=== PATIENT | female | born 1975 | race Caucasian/White ===

== ENCOUNTER 2018-11-16 22:09 | Inpatient (IN) ==
[2018-11-17] MEDS ORDERED: TORADOL IV ONE ×2 (02:21→03:46)
[2018-11-17] MEDS ORDERED: LACTULOSE PO ONE (02:22)
--- NOTE | 2018-11-17 02:22 | PROVIDER DOCUMENTATION ---
HPI-Abdominal Pain/GI Problem - General Chief Complaint: Constipation Stated Complaint: ABD PAIN Time Seen by Provider: 11/17/18 01:44 Source: patient, family Allergies/Adverse Reactions: Patient Allergies Allergy/AdvReac Type Severity Reaction Status Date / Time clindamycin Allergy ANAPHYLAXIS Verified 08/28/17 10:48 Home Medications: Home Medication List Medication Instructions Recorded Confirmed Last Taken Type Insulin Detemir [Levemir] 50 units SQ BID 10/22/15 11/17/18 03/24/17 20:00 History - History of Present Illness-ABD Nature of Presenting Problems: Presents to the with complaints of abdominal pain that is diffuse. She states that she has not had a BM in 3 weeks. She endorses some diarrhea and states she is passing gas. She endorses some chills but denies any fevers. She endorses some nausea but has not had any vomiting. She has a history of colostomy 10 years ago from previous perforation from obstruction. She was seen in the ED a few days ago and they did an xray and told her she was constipated and gave her relistor but she does not take any chronic pain medications. She states she has drank a whole bottle of miralax, has done multiple enemas and nothing is helping. Abdominal Pain Onset Location: reports: generalized abdomen Severity in ED: reports: moderate Timing: reports: still present Review of Systems - Adult - REVIEW OF SYSTEMS - ADULT Constitutional: reports: see HPI Eyes: reports: see HPI Ears, Nose, Mouth & Throat: reports: see HPI Cardiovascular: reports: see HPI Respiratory: reports: see HPI Gastrointestinal: reports: see HPI Genitourinary: reports: see HPI Musculoskeletal: reports: see HPI Integumentary: reports: see HPI Neurological: reports: see HPI Psychiatric: reports: see HPI Endocrine: reports: see HPI Hematologic/Lymphatic: reports: see HPI Allergic/Immunologic: reports: see HPI All Other Systems: Reviewed and Negative Past History - Adult - PAST MEDICAL HISTORY-ADULT Review of Records: reports: Old Records Reviewed Major Childhood Illnesses: reports: denies history Cardiovascular: reports: denies history Respiratory: reports: bronchitis Gastrointestinal: reports: GERD, other (hiatal hernia) Obstetrical/Gynecological: reports: denies history Genitourinary: reports: denies history Musculoskeletal: reports: denies history Neurological: reports: denies history Endocrine/Immune: reports: denies history, Diabetes Other Conditions: reports: denies history - PRIOR SURGERIES/PROCEDURES Surgical/Procedure History: reports: cholecystectomy, hysterectomy, other (colon resection/colostomy with reversal) - IMMUNIZATION STATUS Childhood Immunizations: See Nurse Assessment Flu Vaccine: See Nurse Assessment - FAMILY HISTORY Family History: reviewed, not pertinent Physical Exam-General - PHYSICAL EXAM-ADULT Initial Vital Signs Reviewed: Yes - CONSTITUTIONAL General Appearance: appears well, alert, no apparent distress - EYES Eyes: PERRL/EOMI - HEAD, EARS, NOSE, MOUTH & THROAT HENMT: normocephalic/atraumatic - NECK Neck: supple, normal inspection - RESPIRATORY Respiratory: chest non-tender, lungs clear, normal breath sounds - CARDIOVASCULAR Cardiovascular: normal peripheral pulses, regular rate, rhythm - GASTROINTESTINAL (ABDOMEN) Abdominal Exam: soft, abnormal bowel sounds (hypoactive), tenderness (mild diffusely). negative: distended - MUSCULOSKELETAL Back Exam: normal inspection Extremity: normal range of motion, non-tender, normal gait - SKIN Integumentary: normal color, warm/dry - NEUROLOGIC Neurologic: grossly normal - PSYCHIATRIC Psych/Mental Status: normal mood/affect, oriented x 3 Progress - PLAN OF CARE/RESULTS Progress/Plan/Lab Results: Vital Signs - 8 hr 11/16/18 22:29 11/17/18 01:44 Temperature 97.9 F 97.6 F Pulse Rate 96 H 84 Respiratory Rate 18 18 Blood Pressure 138/90 118/78 O2 Sat by Pulse Oximetry 97 96 Orders Category Date Time Status CT ABD/PELVIS W/IV CONT ONLY [CT] Stat Exams 11/17/18 02:20 Ordered AMYLASE [CHEM] Stat Lab 11/17/18 02:20 Uncollected CBC WITH ELECTRONIC DIFF [HEME] Stat Lab 11/17/18 02:20 Uncollected COMPREHENSIVE METABOLIC PANEL [CHEM] Stat Lab 11/17/18 02:20 Uncollected LIPASE [CHEM] Stat Lab 11/17/18 02:20 Uncollected URINALYSIS W/POSS RFLX CULT [URINALYSIS] Stat Lab 11/17/18 02:20 Uncollected URINE DRUG SCREEN Stat Lab 11/17/18 02:20 Uncollected Ketorolac [Toradol] Med 11/17/18 02:21 Once 30 mg IV NOW ONE Lactulose Med 11/17/18 02:22 Once 30 ml PO NOW ONE Spoke to patient about findings. Patient voiced udchristanding. COnsuled Dr Stevens with surgery who wanted patient NPO and admitted to hospitalist and he will see them in consult. Spoke to Dr Phoenix stone lathe operator for hospitalist who accepted patient for admission. Further orders to be placed by hospitalist. Result Diagrams: 11/17/18 02:40 11/17/18 02:40 - CT/MRI 1 CT Study: Abdomen (apple core lesion, partially obstructing. lung nodule on left lower lobe 7mm concerning for mets) - CONSULTS/PCP/HOSPITALIST Notification #1 *Consult/PCP/Hospitalist*: Dr Stevens Time Discussed: 05:15 Reason/Comments: Admit to hospitalist, NPO #2 Consult: Dr Phoenix Time Discussed: 06:26 Consult Disposition: Admit Departure - Departure Date of Disposition Decision: 11/17/18 Time of Disposition Decision: 06:23 DIAGNOSIS: Abdominal pain, Mass of colon, Nodule of left lung, Hyperglycemia Disposition: ADMITTED INPATIENT 09 Certified Medical Emergency: Emergent Condition: Stable Referrals and Follow-Ups: None,PCP [Primary Care Provider] - - Critical Care Note This patient required my direct & personal management of CC.: No Attestation - Physician/ STACIA Attestation Patient care was provided by Advanced Practice Provider:: No The physician spent face to face time with patient:: Yes Advanced Practice Provider documentation review:: Supervising physician onsite and consulted in the evaluation and care of this patient. The physician did have a face to face encounter with the patient.
[2018-11-17 02:56] LABS: BASO# 0.05 X1000 (0.0-0.2); BASO% 0.6 % (0.0-0.8); EOS# 0.24 X1000 (0.0-0.7); EOS% 2.7 % (0.0-10.0); HEMATOCRIT 41.1 % (37.0-47.0); HEMOGLOBIN 14.2 g/dL (12.0-16.0); IMM GRAN# 0.02 X1000 (0.0-0.04); IMM GRAN% 0.2 % (0.0-0.5); LYMPH# 4.38 X1000 (1.2-3.4); LYMPH% 49.4 % (20.5-51.1); MCH 30.3 PG (27-31); MCHC 34.5 g/dL (33-37); MCV 87.8 FL (81-99); MONO# 0.72 X1000 (0.11-0.59); MONO% 8.1 % (1.7-9.3); NEUT# 3.45 X1000 (1.4-6.5); PLT 208 X1000 (130-400); RBC 4.68 XMIL (4.2-5.4); RDW 12.7 % (11.5-14.5); WBC 8.86 X1000 (4.8-10.8)
[2018-11-17 03:28] LABS: URINE SOURCE CLEAN CATCH
[2018-11-17 03:33] LABS: BILIRUBIN URINE NEGATIVE (NEGATIVE); BLOOD URINE NEGATIVE (NEGATIVE); COLOR STRAW; GLUCOSE URINE >1000 mg/dL (NEGATIVE); KETONE URINE NEGATIVE (NEGATIVE); LEUKOCYTES URINE NEGATIVE (NEGATIVE); NITRITE URINE NEGATIVE (NEGATIVE); PROTEIN URINE NEGATIVE (NEGATIVE); SP GRAVITY URINE 1.033; TURBIDITY URINE CLEAR (CLEAR); UROBILINOGEN URINE NORMAL (NORMAL)
[2018-11-17 03:34] LABS: AGAP 12; ALB/GLOB RATIO 1.2; ALBUMIN 3.4 g/dL (3.5-5.0); ALKALINE PHOSPHATASE 63 U/L (32-104); AMYLASE 21 U/L (20-200); BUN 14 mg/dL (8-22); CALCIUM 9.2 mg/dL (8.8-10.2); CHLORIDE 97 mmol/L (98-107); COSMO 288; CREATININE 0.5 mg/dL (0.5-0.9); ESTIMATED GFR > 60; GOT 16 U/L (10-30); GPT 20 U/L (10-36); LIPASE 16 U/L (13-60); SODIUM 133 mmol/L (136-145); TCO2 24 mmol/L (25-35); TOTAL BILIRUBIN 0.15 mg/dL (0.20-1.00); TOTAL PROTEIN 6.3 g/dL (6.3-8.3)
[2018-11-17 03:35] LABS: UR EPITHELIAL CELLS <10 /HPF (<10); URINE BACTERIA 1+ /HPF; URINE RBC <10 /HPF (<10); URINE WBC <10 /HPF (<10)
[2018-11-17 03:35] LABS: GLUCOSE 472 mg/dL (70-104)
[2018-11-17 03:44] LABS: UR AMPHETAMINES QUAL NONE DETECTED (NONE DETECT); UR BARBITUATES QUAL NONE DETECTED (NONE DETECT); UR BENZODIAZEPIN QUAL NONE DETECTED (NONE DETECT); UR CANNABINOIDS QUAL NONE DETECTED (NONE DETECT); UR COCAINE QUAL NONE DETECTED (NONE DETECT); UR METHADONE QUAL NONE DETECTED (NONE DETECT); UR OPIATES QUAL NONE DETECTED (NONE DETECT); UR OXYCODONE QUAL NONE DETECTED (NONE DETECT); UR PCP QUAL NONE DETECTED (NONE DETECT)
[2018-11-17] MEDS ORDERED: HUMULIN R IV ONE (03:46)
[2018-11-17] MEDS ORDERED: NS 1,000 ML IV ONE (03:46)
[2018-11-17] MEDS ORDERED: MORPHINE IV ONE (07:15)
--- NOTE | 2018-11-17 07:40 | GENERAL SURGERY CONSULTATION ---
DATE: 11/17/2018 REQUESTING PHYSICIAN: Emergency Department. REASON FOR CONSULTATION: Concerning colonic lesion. HISTORY OF PRESENT ILLNESS: A 42-year-old female who is known to my partner, Dr. Felder, who presented with diffuse abdominal pain and constipation without having a significant bowel movement for 3 weeks, although she has been passing gas. She was seen in the emergency department recently and felt to have constipation and was given medication but did not improve. She subsequently came back in after having no improvement. She had a CT scan that showed a potential for an apple-core lesion and some lung lesions noted. I was asked to weigh an opinion. She is feeling better at this moment. Dr. Felder had previously done a colon resection with reversal of colostomy. PAST MEDICAL HISTORY: Diabetes, history of bronchitis. PAST SURGICAL HISTORY: Includes cholecystectomy, hysterectomy, colostomy with colostomy reversal. SOCIAL HISTORY: Current smoker. HOME MEDICATIONS: Reviewed. ALLERGIES: Clindamycin. FAMILY HISTORY: Reviewed with patient, noncontributory. REVIEW OF SYSTEMS: A full 10 point review of systems obtained and negative except as specified in HPI. PHYSICAL EXAMINATION: Vital Signs: Patient is currently afebrile. Her vital signs are stable. General: No acute distress. HEENT: Normocephalic, atraumatic. Pupils equal, round, reactive to light. Mucous membranes moist. Oropharynx benign. Neck: Supple. Trachea midline. Cardiovascular: Regular rate and rhythm. Lungs: Grossly clear. Abdomen: Soft. Some mild diffuse tenderness. Extremities: Moves all extremities. Neurologic: Grossly intact. Skin: No signs of jaundice. Vascular: All extremities perfused. LABORATORY DATA: Reviewed. CEA has been sent off. IMAGING: CT scan independently reviewed and preliminary report reviewed. There is concern for an apple-core lesion. There is also concern for lung lesions. ASSESSMENT AND PLAN: A 42-year-old female with a colonic obstruction. Colonic obstruction. At this time, this may represent a cancer given the findings for apple-core lesion. We will get a CEA. The patient may benefit from colonoscopy to evaluate and biopsy the area, especially in the context where there is potential for lung lesions. I did not see anything that looked obvious for liver lesions but will await the official radiology report. I will discuss the patient with Dr. Felder, who the patient has requested to see. cc: Salvatore Stevens MD
--- NOTE | 2018-11-17 07:55 | Diag Imaging Result Doc PS360 ---
EXAM: CT ABD/PELVIS W/IV CONT ONLY INDICATION: h/o colostomy, endorses no BM in 3 weeks. TECHNIQUE: This exam was performed using automated exposure control, adjustment of mA or kV according to patient size, and/or use of iterative reconstruction technique. COMPARISON: 09/06/2011 FINDINGS: There is a small cavitary lesion measuring 8 mm in the right lower lobe. On the previous study, there was only a tiny solid nodule in this region. There is a similar larger cavitary lesion in the left lower lobe that is partially imaged but was present on the previous study. It is difficult to compare since it is partially imaged. There is a separate 7 mm solid nodule in the left lower lobe medial to the cavitary lesion that was not present previously. There has been a prior cholecystectomy. The liver, spleen, and pancreas are unremarkable. There is a stable small right adrenal adenoma. The urinary bladder is nondistended and is essentially unremarkable, otherwise. There has been a prior hysterectomy. There are two small right ovarian cysts measuring up to 2 cm. There is a right paracentral ventral abdominal wall hernia containing loops of small bowel that is approximately stable. The hernia does not appear to be causing obstruction. There is focal narrowing involving the transverse colon to the left of midline with potential mild wall thickening. Proximal to this, the colon is mildly distended. This may represent a stricture. Circumferential neoplasm cannot be excluded. The remainder of the GI tract is grossly unremarkable. No significant abdominal or pelvic lymphadenopathy is appreciated. No suspicious bony lesions are appreciated. IMPRESSION: 1.Focal narrowing with suggestion of mild wall thickening involving the transverse colon to the left of midline which could represent a stricture. Underlying neoplasm cannot be excluded. There is mild distention of the colon proximal to this. 2.Essentially stable right paracentral ventral abdominal wall hernia that does not appear to be obstructing. 3.A couple of cavitary foci in the lower lung zones bilaterally and one new subcentimeter lung nodule in the left lower lobe. Please see the above discussion. Electronically signed by Gurvinder Guy 11/17/2018 7:52 AM
--- NOTE | 2018-11-17 10:56 | HISTORY AND PHYSICAL ---
PRIMARY CARE PROVIDER: None. CHIEF COMPLAINT: Abdominal pain. HISTORY OF PRESENT ILLNESS: Ms. Ibarra is a 42-year-old female who reports a past medical history of diabetes mellitus and a previous colostomy with reversal at the age of 17 or 18 for a possible hole or leak in her colon, that was performed by Dr. Felder. She came to the ED on 11/16/2018, and today complaining of abdominal pain and constipation. She took several enemas and laxatives. She would have one watery bowel movement and not having much relief. She has been passing gas. She had a CT scan that showed the potential for an apple-core lesion, as well as some lung lesions noted as well. The ED asked Dr. Stevens to see the patient early this morning. He recommend to follow up with a CEA and felt she might benefit from a colostomy to biopsy the area. He will discuss the case with Dr. Felder, which the patient is known to him. Laboratory data was essentially unremarkable except for an elevated blood glucose. She will be admitted to the surgical floor and we will await consultations' recommendations. REVIEW OF SYSTEMS: Twelve-point review of systems completely negative except for those mentioned in the HPI. Patient denied any headache, fever, chills, vomiting, chest pain, palpitations, shortness of breath, cough. PAST MEDICAL HISTORY: Diabetes mellitus. PAST SURGICAL HISTORY: 1. Colostomy and colostomy reversal. 2. Cholecystectomy. 3. Hysterectomy. SOCIAL HISTORY: She smokes a half a pack of cigarettes per day and has done so for 10 to 20 years. 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 She is not . She is engaged. No children. No alcohol or illicit drug use. FAMILY HISTORY: She had a brother with testicular cancer and an uncle with unknown type of cancer, as well as an uncle with heart disease. ALLERGIES: To clindamycin, anaphylaxis. HOME MEDICATIONS: Levemir 50 units subcutaneously b.i.d. PHYSICAL EXAMINATION: VITAL SIGNS: Temperature is 97.6 degrees, heart rate 84, respirations 18, blood pressure 118/78, O2 is 96% on room air. GENERAL: Ms. Ibarra is a pleasant, 42-year-old, female who is lying on her back on the stretcher, in no acute distress. HEENT: Atraumatic, normocephalic. PERRL. NECK: Supple. Trachea midline. CARDIOVASCULAR: S1, S2 appreciated. No murmurs, gallops, rubs noted. RESPIRATORY: Lung sounds clear bilaterally. No rales, rhonchi, or wheezes. GI: Soft. Diffusely tender to palpation. EXTREMITIES: Negative for any edema. Bilateral pedal pulses are palpable. NEUROLOGIC: No focal deficits noted. LABORATORY DATA: White count 8, hemoglobin and hematocrit 14 and 41, platelet count is 208,000. Sodium 133, potassium 4.0, BUN 14, creatinine 0.5, blood glucose is initially 472. After insulin, down to 269. T bilirubin is 0.15. CEA is 4.9. Urinalysis is negative. Toxicology screen negative. Abdomen and pelvis CT shows a focal narrowing with suggestion of mild wall thickening involving the transverse colon on the left of midline, which could represent a stricture. Underlying neoplasm could not be excluded. There is a mild distention of the colon proximal to this, essentially stable right paracentral ventral hernia wall that does not appear to be obstructing, a couple of cavitary foci in the lower lung zones bilaterally and a one new subcentimeter lung nodule in the left lower lobe. ASSESSMENT AND PLAN: 1. Focal narrowing with mild wall thickening involving the transverse colon to the left of midline that could represent a stricture. We need to rule out neoplasm. General surgery is on board. They recommend followup with gastroenterology for possible biopsy. 2. Bilateral cavitary foci in the lower lung zones, one being a new subcentimeter lung nodule in the left lower lobe that was not previously present. Consult pulmonology. 3. Intractable abdominal pain with mild nausea. We will continue with pain control and antiemetics. 4. Diabetes mellitus type 2. We will continue with pattern of blood sugars and sliding scale insulin. We will check hemoglobin A1c. 5. Further recommendations to follow physician evaluation, laboratory and diagnostic data, and consultations. Dictated by RAYMON Arita for Babak Phillips MD cc: MD Elayne Crook MD Michael Kelso, MD James E. Boyle, MD MTDD
[2018-11-17] MEDS: HUMALOG SUBQ SCH ×3 (12:17→21:32)
[2018-11-17] MEDS: MORPHINE IV PRN ×3 (12:17→23:49)
[2018-11-17] MEDS ORDERED: GOLYTELY PO ONE (14:00)
[2018-11-17] MEDS ORDERED: INSULIN PEN NEEDLES ONE (17:13)
--- NOTE | 2018-11-17 17:23 | HISTORY AND PHYSICAL ---
HISTORY AND PHYSICAL - ADDENDUM: The patient seen and examined by me [id number]. All the laboratory and images were reviewed, as well as the vital signs. This patient has a medical history of diabetes and also apparently she had a colostomy done when she was younger due to bowel perforation, but she does not have details of that. She has been having constipation on and off for the past couple weeks and she has been using some enemas and laxatives,. She has been passing gas. We did a CT scan that showed a focal narrowing with suggestion of mild wall thickening involving the transverse colon to the left of midline, which could represent a stricture, and underlying neoplasm cannot be excluded. Her CEA is 4.9, glucose is uncontrolled. I have placed this patient back on her home medications. Surgery Department as well as Gastroenterology Department were consulted. She has been placed on a liquid diet. We will wait for final recommendations. I agree with the rest of the nurse practitioner's assessment and plan. cc: Babak Phillips MD
--- NOTE | 2018-11-17 19:51 | GASTROENTEROLOGY CONSULTATION ---
DATE: 11/17/2018 REASON FOR CONSULTATION: Abnormal CT with focal narrowing in the transverse colon, constipation. HISTORY OF PRESENT ILLNESS: Ms. Nick Ibarra is a 42-year-old woman, with a past medical history of insulin dependent diabetes type 2, obesity, prior cholecystectomy, and history of remote colonic perforation, requiring diverting colostomy and reversal in her 20s, who presents with 3 weeks of obstipation. She complains of associated nausea without vomiting. No dysphagia, rectal bleeding, melena, weight loss. She has been able to eat regularly without any problems. She has been passing some liquid stools, but no solid components. REVIEW OF SYSTEMS: Notable for some lower abdominal pain. Otherwise, 12 point review of systems negative. PAST MEDICAL HISTORY: As per HPI. PAST SURGICAL HISTORY: 1. Hysterectomy. 2. Cholecystectomy. 3. Diverting colostomy, status post reversal. MEDICATIONS: Levemir. ALLERGIES: Clindamycin. SOCIAL HISTORY: 1/2 pack per day smoker x10 years. No alcohol or drug use. FAMILY HISTORY: No family history of GI malignancies. PHYSICAL EXAMINATION: Vital Signs: Temperature 98.7 degrees, heart rate is 75, respiratory rate 18, blood pressure 133/95, O2 saturation 98% on room air. General: Patient is awake, alert, oriented, well nourished, well developed, in no acute distress. HEENT: Sclerae anicteric. Moist mucous membranes. Extraocular motor intact. Neck: Supple. No JVD or lymphadenopathy. Cardiac: Regular rate and rhythm. No murmurs. Lungs: Clear to auscultation bilaterally. No wheezing, rales, or rhonchi. Abdomen: Obese. Bowel sounds are present. Midline scar. Mild tenderness to palpation in the right lower quadrant. No ascites. No tympany. Extremities: No clubbing, cyanosis, or edema. Neurologic: Nonfocal. LABS: White count of 8.8, hemoglobin 14.2, platelets of 208,000. Sodium 133, potassium 4.0, chloride of 97, bicarb of 24, BUN of 14, creatinine 0.5, glucose of 472. LFTs are within normal limits. Albumin 3.8, CEA of 4.9. UA shows glucosuria. Urine tox is negative. IMAGING: CT of the abdomen and pelvis with IV contrast shows focal narrowing with suggestion of mild wall thickening involving the transverse colon to the left of the midline, which may represent a stricture. Underlying neoplasm could not be excluded. There is mild distention of the colon proximal to this, a stable right paracentral ventral abdominal wall abdominal hernia that is nonobstructing, and there are a couple of cavitary foci in the lower lung zones bilaterally, and 1 new subcentimeter lung nodule in the left lower lobe. ASSESSMENT AND PLAN: Ms. Nick Ibarra is a 42-year-old woman, with past medical history significant for insulin dependent diabetes type 2, prior colonic perforation requiring colostomy, status post reversal in the past, who presents with 3 weeks of obstipation, abdominal pain, and nausea. CT shows a focal narrowing in the transverse colon, concerning for a possible stricture versus underlying malignancy. CEA is elevated, although this is a nonspecific test. She does not appear to be obstructed at this time. Her abdomen is benign. She is not having any vomiting. She is tolerating a clear liquid diet. 1. Abnormal CT. Will plan for a diagnostic colonoscopy tomorrow. Will prep with 4 L of GoLYTELY, n.p.o. after midnight. Discussed risks and benefits with the patient. 2. Constipation. Again, evaluate with colonoscopy. 3. Elevated CEA, unclear etiology. 4. Cavitary lung nodules. Pulmonary has been consulted. Defer management to Pulmonary. 5. Insulin dependent diabetes, on sliding scale insulin. 6. Nausea. Antiemetics as needed. 7. Abdominal pain. The patient is currently on morphine and Tylenol. Thank you for this consult. Will follow with you. Please call with any questions or concerns.
[2018-11-17] MEDS: ZOFRAN IV PRN (20:01)
[2018-11-17] MEDS: LEVEMIR SUBQ SCH (21:32)
--- NOTE | 2018-11-17 21:38 | PULMONOLOGY CONSULTATION ---
DATE: 11/17/2018 REASON FOR CONSULTATION: Cavitary pulmonary nodules. HISTORY OF PRESENT ILLNESS: Ms. Ibarra is a 42-year-old white female with a 15 pack-year history for tobacco (continues to smoke), obesity, who had an episode of colonic perforation at the age of 17 or 18. No specific etiology for the perforation was explained to the patient. The patient had a colostomy for approximately 6 months with subsequent reversal. She denies difficulty with her abdomen since that time. She denies pulmonary disease. 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 The patient has developed increase abdominal pain and constipation over the last several weeks. She came to the emergency room after failing several laxatives. CT scan of the abdomen and pelvis was performed which revealed possible stricture versus neoplasm in the transverse colon. She was also noted to have a small cavitary lesion in the right lower lobe and a similar cavitary lesion in the left lower lobe which was present on a 2012 study. She also has a 7 mm nodule in the left lower lobe, which was not present in 2012. PAST MEDICAL HISTORY AND PROBLEM LIST: 1. Diabetes mellitus with probable poor control. The patient reports she has not had a recent hemoglobin A1c. 2. Prior colostomy with reversal as per above. 3. Status post hysterectomy. 4. Status post cholecystectomy. SOCIAL HISTORY: Ongoing tobacco use as per above. No alcohol use. FAMILY HISTORY: Positive for heart disease and testicular cancer. REVIEW OF SYSTEMS: Notable for constipation, but otherwise negative. PHYSICAL EXAMINATION: General: Reveals an obese white female with a BMI of 33. She is resting comfortably and in no distress. Vital signs: Blood pressure 133/95, heart rate 75, respiratory rate 18, oxygen saturation 98% on room air. HEENT: Pupils are equal and reactive. Oropharynx appears clear. Neck: Supple. Chest: Reveals good air entry bilaterally without wheezing or rhonchi. Cardiac Exam: S1-S2. Abdomen: Soft without hepatosplenomegaly. Extremities: Without edema. LABORATORIES: White blood count 8.86, hemoglobin 14.2, platelet count 208,000. Sodium 133, potassium 4.0, chloride 97, bicarbonate 24, BUN 14, creatinine 0.5, glucose 472. CEA is slightly elevated at 4.9. IMPRESSION: A 42-year-old with tobacco use/nicotine addiction, multiple pulmonary nodules, poorly controlled diabetes mellitus, with possible colon cancer versus colon stricture. The differential for the nodules includes both benign and malignant etiologies. Malignant etiologies would represent metastatic disease with primary lung cancer being less likely. Benign disease would include both typical and atypical infectious processes which would have an increased risk given her poorly controlled diabetes mellitus. Necrobiotic nodules can be seen with Crohn disease and ulcerative colitis, which would connect both the colon process with the pulmonary process. She is scheduled to undergo a colonoscopy tomorrow to help define her colon pathology. At this juncture, anticipate observation of the pulmonary nodules. RECOMMENDATIONS: 1. CT scan of the thorax to further image the upper and mid lung almonte, which were not imaged with CT scan of the abdomen and pelvis. 2. Check QuantiFERON gold TB test, although, this is not likely to be tuberculosis. 3. Encourage control of glucose. 4. Strongly encourage smoking cessation. cc: Alban Colón MD
[2018-11-18] MEDS: ZOFRAN IV PRN ×2 (00:06→06:28)
[2018-11-18] MEDS: HUMALOG SUBQ SCH ×4 (06:19→20:38)
[2018-11-18] MEDS ORDERED: DIPRIVAN 1% ONE ×2 (07:29→09:12)
[2018-11-18] MEDS ORDERED: FENTANYL ONE (07:32)
[2018-11-18] MEDS ORDERED: XYLOCAINE-MPF 2% ONE (07:33)
[2018-11-18] MEDS ORDERED: NS 1,000 ML IV SCH (08:15)
[2018-11-18 08:36] LABS: BASO# 0.03 X1000 (0.0-0.2); BASO% 0.5 % (0.0-0.8); EOS# 0.18 X1000 (0.0-0.7); EOS% 2.9 % (0.0-10.0); HEMOGLOBIN 13.9 g/dL (12.0-16.0); LYMPH# 2.63 X1000 (1.2-3.4); LYMPH% 42.3 % (20.5-51.1); MCH 30.8 PG (27-31); MCHC 34.8 g/dL (33-37); MCV 88.5 FL (81-99); MONO# 0.48 X1000 (0.11-0.59); MONO% 7.7 % (1.7-9.3); MPV 10.9 FL (7.4-10.4); NEUT% 46.6 % (42.2-75.2); PLT 203 X1000 (130-400); RBC 4.52 XMIL (4.2-5.4); RDW 12.9 % (11.5-14.5); WBC 6.22 X1000 (4.8-10.8)
--- NOTE | 2018-11-18 08:37 | PROGRESS NOTE ---
DATE: 11/18/2018 SUBJECTIVE: This patient is lying comfortably in bed. At this moment she is going to get a colonoscopy done. She has been prepped during the night. I will put this patient on a little bit of fluids. She has been complaining of a little bit of headache. Vital signs are stable. Pending laboratory at this moment. OBJECTIVE: Vital Signs: Temperature 97.5 degrees, pulse 75, respiratory rate 16, blood pressure 108/73, oxygen saturation 98% on room air. HEENT: Head normocephalic. No trauma. PERRLA. Neck: Supple. No JVD. No masses. Central trachea. Chest: Clear to auscultation. No wheezing. No rales. Abdomen: Soft. Tenderness to palpation at the level of the periumbilical area and mostly the lower and left lower part and the left area. She does have multiple scars from previous surgery. No signs of peritoneal irritation. Extremities: No edema, no clubbing, no cyanosis. Neurological: The patient is alert and oriented x3. No focal deficits. LABORATORY: Pending lab work today. ASSESSMENT AND PLAN: 1. Focal narrowing with mild wall thickening involving the transverse colon to the left of midline that could represent a stricture. We need to rule out no neoplasm. CEA is 4.9. She will have a colonoscopy done today. Gastroenterology Department as well as Surgery Department on board. We will wait for the final results of the biopsy. 2. Bilateral cavitary foci in the lower lung zones. This has been monitored by the Pulmonary Department. They have recommended to do a CT of the thorax. We will monitor. She is not complaining of any respiratory issues or cough. 3. Intractable abdominal pain with mild nausea. She is still having pain. No nausea at this moment. 4. Diabetes mellitus type 2. The blood sugar seems to be a little bit better controlled. Pending lab work today including hemoglobin A1c. We will continue for now with her home medications and sliding scale insulin with pattern blood sugar. cc: Babak Phillips MD
[2018-11-18 09:01] LABS: HEMOGLOBIN A1C 13.2 % (4.8-6.0)
[2018-11-18 09:07] LABS: AGAP 12; ALBUMIN 3.1 g/dL (3.5-5.0); ALKALINE PHOSPHATASE 92 U/L (32-104); BUN 5 mg/dL (8-22); CALCIUM 8.6 mg/dL (8.8-10.2); CHLORIDE 98 mmol/L (98-107); COSMO 275; CREATININE 0.3 mg/dL (0.5-0.9); ESTIMATED GFR > 60; GLUCOSE 137 mg/dL (70-104); GOT 151 U/L (10-30); GPT 127 U/L (10-36); POTASSIUM 3.4 mmol/L (3.5-5.1); SODIUM 138 mmol/L (136-145); TCO2 28 mmol/L (25-35); TOTAL BILIRUBIN 0.42 mg/dL (0.20-1.00); TOTAL PROTEIN 6.1 g/dL (6.3-8.3)
--- NOTE | 2018-11-18 09:29 | ENDOSCOPY OPERATIVE NOTE ---
[facility] ENDOSCOPY OPERATIVE NOTE , PATIENT: Nick Ibarra ADM DATE: 11/18/2018 MR #: [id number] : 1975 COLONOSCOPY PROCEDURE REPORT PROCEDURE DATE: 11/18/2018 SURGEON: Lucio Tran MD STATUS: inpatient BRANCH OFFICER: PREOPERATIVE DIAGNOSIS: The patient is a 42 yr old female here for a colonoscopy due to an abnormal CT and constipation. PROCEDURE PERFORMED: Colonoscopy with biopsy MEDICATIONS: Per Anesthesia PREP TYPE: GoLytely
[2018-11-18] MEDS: TYLENOL PO PRN (10:41)
[2018-11-18] MEDS ORDERED: KLOR-CON PO ONE (11:18)
[2018-11-18] MEDS: LEVEMIR SUBQ SCH ×2 (16:17→20:37)
--- NOTE | 2018-11-18 16:55 | Diag Imaging Result Doc PS360 ---
EXAM: CT THORAX W/O CONTRAST INDICATION: cavitary lung disease TECHNIQUE: This exam was performed using automated exposure control, adjustment of mA or kV according to patient size, and/or use of iterative reconstruction technique. COMPARISON: CT abdomen and pelvis dated 11/17/2018. No dedicated prior CT chest is available for comparison. FINDINGS: The largest cavitary lesion that has been seen on prior abdominal CTs in the left lower lobe is now fully imaged. It is stable or even slightly smaller than in 2012. It measures up to 1.9 x 1.9 cm axially. The other smaller cavitary lesion in the right lower lobe noted on yesterday's abdominal CT is unchanged. There are a couple of small left lower lobe lung nodules that are solid. One of these was imaged on yesterday's study and is stable measuring about 7 mm. There is another that without the axzyf-bn-geld on yesterday's abdominal CT that is more superior measuring up to 1.9 cm axially. There is a small focus of atelectasis or scarring that is in the left lower lobe that is stable as compared to yesterday's abdominal CT. No other cystic or solid lesions are identified. There is no pleural fluid collection and no pneumothorax. There appears to be mild residual thymic tissue at the anterior aspect of the upper mediastinum. No definite lymphadenopathy is appreciated. There is no cardiomegaly. IMPRESSION: A couple of small cavitary lesions in both the right and left lower lobes and a couple of other smaller noncalcified nodules as described above. Electronically signed by Gurvinder Guy 11/18/2018 4:53 PM
--- NOTE | 2018-11-18 17:29 | PROGRESS NOTE ---
DATE: 11/18/2018 Ms Ibarra underwent a colonoscopy per Dr. Tran today, which showed a benign stricture at 30 cm from the anus with an inner diameter of 14 mm. The scope evidently went by it easily. It was biopsied. He feels that it is benign. Clear liquid was started, and aggressive bowel regimen was recommended with follow-up in his office in 2 to 4 weeks. I will see her in our outpatient offices needed. cc: Elayne Felder MD
[2018-11-18] MEDS: MIRALAX PO SCH (20:37)
[2018-11-18] MEDS: MORPHINE IV PRN (21:59)
--- NOTE | 2018-11-18 22:34 | PULMONOLOGY PROGRESS NOTE ---
DATE: 11/18/2018 SUBJECTIVE: The patient is awake, alert, and conversant. She is tolerating liquids without difficulty. She underwent an endoscopy today, which revealed a stricture with a benign appearance. OBJECTIVE: Vital Signs: The patient has been afebrile for the last 24 hours. Blood pressure 129/83, heart rate 61, respiratory rate 16, oxygen saturation 96% on room air. HEENT: Pupils are equal and reactive. Oropharynx is clear. Neck: Supple. Chest: Reveals good air entry bilaterally without wheezing or rhonchi. Cardiac: S1, S2. Abdomen: Obese and soft. Extremities: Without edema. LABORATORIES: Hemoglobin A1c reveals extremely poor glucose control at 13.2% with an average estimated glucose level of 332. White blood count 6.22, hemoglobin 13.9, platelet count 203,000. IMAGING: Chest CT to reveals a stable cavitary lesion in the left lower lobe which was present in 2011, it may be slightly smaller. She has a small cavitary lesion on the right lower lobe which appears stable. IMPRESSION: A 42-year-old with ongoing tobacco use, extremely poor glucose control/severe diabetes, with nonspecific cavitary lesions on CT scans. These are suspected to be infectious in nature and may be related to her poorly controlled diabetes mellitus. Cancer cannot be completely ruled out, but is unlikely, especially with the stability of the nodule on the left. RECOMMENDATION: 1. Okay for discharge from a pulmonary standpoint. 2. Strongly encourage patient to discontinue tobacco use. 3. Follow up in my clinic as an outpatient. We will collect sputum at a later date, we will consider bronchoscopy later date, we will anticipate short term CT scan follow-up. cc: Alban Colón MD
[2018-11-19] MEDS: TYLENOL PO PRN (01:46)
[2018-11-19] MEDS: MORPHINE IV PRN (01:46)
[2018-11-19] MEDS: HUMALOG SUBQ SCH (06:33)
[2018-11-19 06:59] LABS: BASO# 0.02 X1000 (0.0-0.2); BASO% 0.3 % (0.0-0.8); EOS# 0.19 X1000 (0.0-0.7); EOS% 2.8 % (0.0-10.0); HEMATOCRIT 40.5 % (37.0-47.0); HEMOGLOBIN 13.5 g/dL (12.0-16.0); LYMPH# 2.98 X1000 (1.2-3.4); LYMPH% 43.3 % (20.5-51.1); MCH 30.1 PG (27-31); MCHC 33.3 g/dL (33-37); MCV 90.2 FL (81-99); MONO# 0.66 X1000 (0.11-0.59); MONO% 9.6 % (1.7-9.3); MPV 10.9 FL (7.4-10.4); NEUT# 3.03 X1000 (1.4-6.5); PLT 194 X1000 (130-400); RBC 4.49 XMIL (4.2-5.4); RDW 13.1 % (11.5-14.5); WBC 6.88 X1000 (4.8-10.8)
[2018-11-19 07:08] LABS: AGAP 12; BUN 12 mg/dL (8-22); CALCIUM 9.3 mg/dL (8.8-10.2); CHLORIDE 95 mmol/L (98-107); COSMO 278; CREATININE 0.4 mg/dL (0.5-0.9); ESTIMATED GFR > 60; GLUCOSE 352 mg/dL (70-104); POTASSIUM 4.1 mmol/L (3.5-5.1); SODIUM 132 mmol/L (136-145); TCO2 25 mmol/L (25-35)
[2018-11-19] MEDS: MIRALAX PO SCH (09:46)
[2018-11-19] MEDS: LEVEMIR SUBQ SCH (09:46)
[2018-11-19 11:29] VITALS: BP 119/82
--- NOTE | 2018-11-19 13:07 | GASTROENTEROLOGY PROGRESS NOTE ---
DATE: 11/19/2018 SUBJECTIVE: Patient resting in bed. She is feeling better. She denies any new complaints. Denies any fevers, rigors, chills. Denies abdominal pain. Denies any nausea or vomiting. She is hungry. She had liquid brown stool this morning. OBJECTIVE: Vitals: Temperature 98 degrees, pulse rate of 76, respiratory rate of 16, blood pressure 190/82, saturating 96% on room air. Body weight of 205 pounds, BMI of 33.1 kg/m2. General appearance: Obese, lying in bed in no acute distress. HEENT: No pallor. No icterus. Neck: Supple. Abdomen: Soft. No rebound or guarding. Mild discomfort. Extremities: No cyanosis, clubbing. Neurologic: Neuro frausto, alert, awake, oriented. LABS: Hemoglobin and hematocrit is 13.5 and 40.5, white count of 6.8, platelet count of 194. Sodium 132, potassium 4.1, chloride 95, bicarbonate of 25, anion gap 12. BUN of 12, creatinine 0.4, glucose of 352, calcium 9.3. AST was 151, ALT 127, alkaline phosphatase 90, total protein is 6.2, albumin of 3.1. HB A1c 13.2 suggesting uncontrolled diabetes mellitus. Urinalysis showing positive glucose. Tox screen was negative. X-RAYS: Her CT of the abdomen and pelvis done on 11/17/2018 showed focal narrowing with suggestion of mild wall thickening involving the transverse colon, to the left of the midline, which could represent a stricture. Underlying neoplasm cannot be excluded. There is mild distention of the colon proximal to this. Essentially stable right paracentral ventral abdominal wall hernia that is nonobstructing. A couple of cavitary foci in the lower lung zones bilaterally and 1 subcentimeter lung nodule in the left lower lobe. The patient had colonoscopy done by Dr. Tran on 11/18, which showed a 10 mm long benign-appearing stricture with an inner diameter of 14 mm located at 30 cm from the point of entry. Biopsies were obtained which are currently pending. ASSESSMENT: 1. Benign-appearing colon stricture at 30 cm from the anal verge. 2. Uncontrolled diabetes mellitus. 3. Elevated liver enzymes. 4. Abdominal wall hernia. 5. Obesity. RECOMMENDATIONS: We will check out abdominal ultrasound to evaluate for elevated liver enzymes. We will check hepatitis panel. Will encourage the patient to keep a good control of diabetes. The patient will continue on a bowel regimen. The patient will continue on Pepcid for GI prophylaxis. The patient will follow with Dr. Tran in 2 to 3 weeks of discharge to discuss the biopsy results. The patient's elevated liver enzymes, which is a new finding, will need to work this up. Discussed the above plans with the patient. All questions answered. Please call us with any further questions. cc: MD Babak Salazar MD
--- NOTE | 2018-11-20 06:32 | DISCHARGE SUMMARY ---
ADMISSION DATE: 11/16/2018 DISCHARGE DATE: 11/19/2018 DISCHARGE DIAGNOSES: 1. Focal narrowing with mild wall thickening involving the transverse colon to the left of midline that could represent a stricture, status post EGD that showed a 10 mm lung benign appearing stricture with an inner diameter of 14 mm located 30 cm from the point of entry. 2. Bilateral cavitary foci in the lower lung zones. 3. Intractable abdominal pain with mild nausea, resolved. 4. Uncontrolled type 2 diabetes. 5. Elevated liver function tests. PROCEDURES PERFORMED: 1. Abdomen and pelvis CT scan dated 11/17/2018. Impression: Focal narrowing with suggestion of mild wall thickening involving the transverse colon to the left of midline, which could represent a stricture, essentially stable right paracentral ventral abdominal wall hernia that does not appear to be obstructing. 2. A couple of cavitary foci in the lower lung zones bilaterally, and 1 new subcentimeter lung nodule in the left lower lobe. 3. Chest CT dated 11/18/2018. Impression: A couple of small cavitary lesions in both of the right and left lower lobes, and a couple of other smaller noncalcified nodules as described above. 4. EGD dated 11/18/2018. Impression: A 10 mm long benign appearing stricture with an inner diameter of 14 mm, located 30 cm from the point of entry. HOSPITAL COURSE: A 42-year-old female with a past medical history of diabetes and previous colostomy with reversal at the age of 17 or 18 for possible colon perforation that was performed by Dr. Felder at that time. She came to the emergency department on 11/16/2018 and admitted due to abdominal pain and constipation. She took several enemas and laxatives. She would have 1 watery bowel movement and not having much relief. She has been passing gas. Her CT scan showed the potential for an apple-core lesion as well as some lung lesions noted as well. The Surgery Department, as well as gastroenterology department evaluated this patient, and an endoscopy was performed. GI Department found a narrowing that looks benign, and the pulmonary doctor also evaluated this patient. CT scan was performed that showed some nodules and also some cavitary lesions. We started this patient on a liquid diet, and GI department suggested to continue with laxative. I talked to the patient about her diabetes. She is going to get an appointment with a diabetic doctor soon. I will continue with the same management. Her hemoglobin A1c was elevated. Also, her LFTs were elevated and she will have some lab work and images done as an outpatient. She has an appointment with Dr. Tran on 12/03/2018. The patient has been notified about everything. She has been discharged home. She will continue with liquid/soft diet and laxative. Also, she will follow up with Dr. Colón as an outpatient for her lung lesions. OBJECTIVE: Vital Signs: Temperature 98 degrees, pulse 76, respiratory rate 16, blood pressure 118/82, and oxygen saturation 96 percent on room air. HEENT: Head normocephalic. No trauma. PERRLA. Neck: Supple. No JVD. No masses. Central trachea. Chest: Clear to auscultation. No wheezing. No rales. Abdomen: Soft. There is some tenderness to palpation at the level of the periumbilical area. No signs of peritoneal irritation. She does have multiple scars from previous surgery. No signs of peritoneal irritation. Extremities: No edema. No clubbing. No cyanosis. Neurological: Alert and oriented x3. No focal deficits. LABORATORY: WBC 6.8, hemoglobin 13.5, hematocrit 40.5, and platelets 194,000. Sodium 132, potassium 4.1, chloride 95, bicarbonate 25, BUN 12, creatinine 0.4 glucose 352, and calcium 9.3. DISCHARGE MEDICATIONS: 1. Insulin detemir 50 units subcutaneous b.i.d. 2. Milk of Magnesia 30 mL p.o. daily as needed for constipation. 3. MiraLAX 17 g p.o. b.i.d. for constipation. DISPOSITION: I talked to the patient, she needs to follow up with a primary doctor. As per the patient, she will call tomorrow a diabetic doctor to take care of her diabetes. Also, she will need to follow with Dr. Tran on 12/03/2018. All her questions were answered. She has been discharged home in stable medical condition. TIME SPENT: Time discharging this patient 35 minutes. cc: Babak Phillips MD
== END 2018-11-19 12:02 | disposition home or self-care (01) | DRG 390 ==
LOC: ED 22:09 → 4N 22:10
PROVIDERS: ATTEND Internal Medicine
CPT/HCPCS: 71250; 74177; 80048; 80053; 80074; 80101; 80301; 80307; 80324; 80345; 80346; 80353; 80358; 80361; 80365; 81001; 82150; 82378; 82948; 83036; 83690; 83992; 85025; 86480; 88305; 96361; 96374; 96375; 96376; 99285; A9270; G0431; G0434; G0479; G0480; J1815; J1885; J2270; J2405; J3010; J7030; Q9967; XXXXX